=== PATIENT | male | born 1970 | race Caucasian/White ===

== ENCOUNTER 2022-12-30 07:07 | Day surgery (SDC) | payer BC ==
[~2022-12-30] VITALS: Ht 190.5 cm; Wt 146.6 kg
[2022-12-30] MEDS ORDERED: PRIL40 PO (07:49)
[2022-12-30 07:55] VITALS: BP 143/80; PULSE 63; TEMP 97.8
[2022-12-30 09:35] VITALS: BP 110/68; PULSE 60; TEMP 97.8
--- NOTE | 2022-12-30 10:08 | NUR ---
0935-PATIENT ARRIVED FROM ENDO SUITE VIA CART, REPORT OBTAINED FROM [facility]. PT AMBULATED TO RECLINER, SPOUSE AT BEDSIDE. VITAL SIGNS TAKEN, VSS. PT ALERT AND ORIENTED, DENIES PAIN OR NAUSEA. PO INTAKE OFFERED. 0950-PT TOLERATING PO INTAKE WELL. DISCHARGE INSTRUCTIONS REVIEWED WITH PT AND SPOUSE, QUESTIONS INVITED. 1000-PT DRESSED INDEPENDENTLY. IV CATHETER REMOVED, TIP INTACT. PRESSURE DRESSING APPLIED. 1003-PT DISCHARGED HOME TO [facility] VIA WHEELCHAIR, ACCOMPANIED BY SPOUSE. ALL BELONGINGS AND D/C INSTRUCTIONS SENT WITH PT.
== END 2022-12-30 10:03 | disposition home or self-care (01) ==
LOC: SDCO 07:07
DX: Z12.11 Encounter for screening for malignant neoplasm of colon (principal); D12.8 Benign neoplasm of rectum; K57.30 Diverticulosis of large intestine without perforation or abscess without bleeding; E66.01 Morbid (severe) obesity due to excess calories; F17.210 Nicotine dependence, cigarettes, uncomplicated; Z68.41 Body mass index [BMI] 40.0-44.9, adult
CPT/HCPCS: J2704; J7120